=== PATIENT | male | born 1975 | race Caucasian/White ===

== ENCOUNTER 2016-05-18 20:55 | Emergency (ER) | payer OTHER ==
[~2016-05-18] VITALS: Ht 182.9 cm; Wt 93.2 kg
[~2016-05-18 20:55] MED LIST: CIPRO 500MG TA500 MG PO; HCTZ 25MG25 MG PO; LISINOPRIL; LORTAB 7.5/5001 TAB PO; NO HOME MEDICATIONS; NORCO 325 MG-51 TAB PO; PHENERGAN W/CO120 ML PO; PRINZIDE 12.5 M1 TA1 PO; SKELAXIN 4400 MG/TAB PO; TOPROL XL50 MG PO; TYLENOL W/COD1 UDTAB PO; ZESTRIL2.5 MG PO
[2016-05-18 20:56] VITALS: BP 129/90; TEMP 97.3
[2016-05-18 21:30] VITALS: PULSE 96
== END 2016-05-18 21:30 | disposition home or self-care (01) ==
LOC: COL.ER 20:55
DX: M25.562 Pain in left knee (principal); G89.29 Other chronic pain
CPT/HCPCS: L1830

== ENCOUNTER → 2016-05-23 | Outpatient (CLI) | payer OTHER | LOC: COL.RAD 07:30 | DX: S83.242A Other tear of medial meniscus, current injury, left knee, initial encounter (principal); S76.112A Strain of left quadriceps muscle, fascia and tendon, initial encounter; X58.XXXA Exposure to other specified factors, initial encounter ==

== ENCOUNTER 2017-08-09 09:43 | Emergency (ER) | payer SELFPAY ==
[~2017-08-09] VITALS: Ht 182.9 cm; Wt 95.5 kg
[2017-08-09 09:47] VITALS: TEMP 97
[2017-08-09] MEDS ORDERED: VOLTAREN 75 DR75 MG PO (11:05)
[2017-08-09] MEDS ORDERED: LIDODERM 5% PATC1 EA TP (11:05)
[2017-08-09 11:20] VITALS: BP 150/82; PULSE 81
== END 2017-08-09 11:16 | disposition home or self-care (01) ==
LOC: COL.ER 09:43
DX: R07.89 Other chest pain (principal); I10 Essential (primary) hypertension; F17.210 Nicotine dependence, cigarettes, uncomplicated; Z98.890 Other specified postprocedural states
CPT/HCPCS: J1885